=== PATIENT | female | born 1970 | race Caucasian/White ===

== ENCOUNTER → 2022-04-03 01:45 | Outpatient (CLI) | payer MEDICAID, SELFPAY ==
--- NOTE | 2022-04-03 07:30 | DI.US_ITS ---
Exam(s) US PELVIS TRANSVAGINAL EXAM: US PELVIS TRANSVAGINAL CLINICAL HISTORY: assess uterus ovaries; ?fibroid,MENORRHAGIA, DYSMENORRHEA,N92.1 TECHNIQUE: Ultrasound of the pelvis was performed both transabdominal and transvaginal. COMPARISON: No exams were available for comparison FINDINGS: UTERUS: Retroverted Measures 8 cm length x 5 cm AP x 5 cm wide. There is a 13 x 9 x 8 millimeter anterior fundal fibroid.There is also a 14 x 10 x 10 millimeter sub fundal fibroid right of center. Endometrial thickness measures 9 mm. There is no fluid in the endometrial canal. CERVIX: There are no obvious nabothian cysts. RIGHT OVARY: Measures 1.5 x 2.9 x 1.9 cm Contains small cysts ranging up to 1.6 x 1.6 cm. LEFT OVARY: Measures 2.5 x 1.3 x 2 cm No significant cysts nor masses evident in the left ovary. CUL-DE-SAC: Tiny amount of free fluid IMPRESSION: 1. Two small uterine fibroids. 2. Follicular cyst right ovary measuring 1.6 x 1.6 cm 3. Small amount of free fluid. DATA REPOSITORY:
== END ==
PROVIDERS: PCP Nurse Practitioner Adult Health; Visit Provider Nurse Practitioner Adult Health
DX: N92.1 Excessive and frequent menstruation with irregular cycle (principal); N94.6 Dysmenorrhea, unspecified; D25.9 Leiomyoma of uterus, unspecified
CPT/HCPCS: 76830; 76856

== ENCOUNTER 2022-04-03 03:37 | Outpatient (CLI) | payer MEDICAID, SELFPAY ==
[2022-04-03 10:13] LABS: Anion Gap 7.5 mmol/L (3-11); BUN 14 mg/dL (7-18); CO2 28.5 mmol/L (21.0-32.0); CREATININE 0.6 mg/dL (0.55-1.02); Calcium 8.6 mg/dL (8.5-10.1); Calculated LDL 190 mg/dL (<100); Chloride 104 mmol/L (98-107); Cholesterol 317 mg/dL (<200); Glucose 88 mg/dL (74-106); HDL Cholesterol 116 mg/dL (40-60); Potassium 4.2 mmol/L (3.5-5.1); Sodium 140 mmol/L (136-145); Triglyceride 59 mg/dL (<150)
== END 2022-04-03 03:38 | disposition home or self-care (01) ==
LOC: LBO 03:37
PROVIDERS: PCP Nurse Practitioner Adult Health; Referring Provider Nurse Practitioner Adult Health; Visit Provider Nurse Practitioner Adult Health
DX: E78.5 Hyperlipidemia, unspecified; J45.998 Other asthma; N92.1 Excessive and frequent menstruation with irregular cycle
CPT/HCPCS: 36415; 80048; 80061

== ENCOUNTER 2022-04-21 10:48 | Outpatient (REF) | payer MEDICAID, SELFPAY ==
--- NOTE | 2022-04-21 10:00 | PAPFT_PTH ---
PATIENT: Sydnee Ruano LOC: [facility] U#:[id number] AGE/SX: 52/F ROOM: RE04/21/[address]: Yanci Wills APRN : 1970 BED: DIS: 04/21/2022 SPEC #: [id number] RECD: 04/21/22 17:32 STATUS: QUANG EVANGELISTA #: [id number] CITLALLI: 04/21/22 10:[address]: Yanci Wills DEPT: [facility] Cytology RECD BY: Susana Berry Tissues: 1 - CX/ENDOCX FOR PAP SMEARS Procedures: PAP THIN PREP/UVM Screening HPV DNA PROBE Comments: [id number]
== END 2022-04-21 10:49 | disposition home or self-care (01) ==
LOC: LBN 10:48
PROVIDERS: PCP Nurse Practitioner Adult Health; Visit Provider Nurse Practitioner Adult Health
DX: Z12.4 Encounter for screening for malignant neoplasm of cervix (principal); R87.618 Other abnormal cytological findings on specimens from cervix uteri; Z11.51 Encounter for screening for human papillomavirus (HPV)
CPT/HCPCS: 88142; 87624

== ENCOUNTER → 2022-05-22 01:37 | Outpatient (CLI) | payer MEDICAID, SELFPAY ==
--- NOTE | 2022-05-22 14:31 | DI.MAMMO_ITS ---
Exam(s) MAMMO SCREENING EXAM: MAMMO SCREENING CLINICAL HISTORY: screening,Z12.39 TECHNIQUE: Mammograms were interpreted according to the usual protocol including computer analysis w [employer] CAD system, tomosynthesis and C-view imaging. COMPARISON: No exams were available for comparison baseline exam FINDINGS: The breasts are composed of scattered fibroglandular densities, Breast Density category B. No suspicious masses or suspicious microcalcifications are seen. No skin thickening or abnormal axillary lymph nodes are seen. IMPRESSION: BI-RADS Category 1, Negative mammogram Yearly screening mammography is recommended. Breast Density - Category B, scattered fibroglandular densities. A negative radiographic report should not delay biopsy if a dominant or clinically suspicious mass is present. Up to ten percent of cancers are not identified on mammography. A negative report may reinforce clinical impression. Adenosis and dense breasts may obscure an underlying neoplasm. False positive reports average 6 to 10%. Patient will receive a letter notifying them of these results.
== END ==
PROVIDERS: PCP Nurse Practitioner Adult Health; Visit Provider Nurse Practitioner Adult Health
DX: Z12.31 Encounter for screening mammogram for malignant neoplasm of breast (principal)
CPT/HCPCS: 77063; 77067

== ENCOUNTER 2023-01-11 02:52 | Outpatient (CLI) | payer MEDICAID, SELFPAY ==
[2023-01-11 09:36] LABS: Calculated LDL 139 mg/dL (<100); Cholesterol 255 mg/dL (<200); HDL Cholesterol 106 mg/dL (40-60); Triglyceride 50 mg/dL (<150)
== END 2023-01-11 02:53 | disposition home or self-care (01) ==
PROVIDERS: PCP Nurse Practitioner Adult Health; Visit Provider Nurse Practitioner Adult Health
DX: E78.2 Mixed hyperlipidemia (principal)
CPT/HCPCS: 36415; 80061

== ENCOUNTER 2023-02-05 08:45 | Day surgery (SDC) | payer MEDICAID, SELFPAY ==
--- NOTE | 2023-02-04 14:42 | W.ANESPRE ---
General Info Date of Service Date Performed: 02/05/23 Height: 5 ft 6 in Weight: 75.807 kg Body Mass Index (BMI): 26.9 Surgical Procedure: Operation Date: 02/05/23 10:35 Proposed Procedure Side Surgeon shakir Perez MD Meds Allergies and Home Medications Allergies Allergy/AdvReac Type Severity Reaction Status Date / Time environmental Allergy Unknown Uncoded 02/02/23 10:37 Home Medication Medication Instructions Recorded albuterol sulfate 90 mcg/actuation 1 - 2 puff inhalation Q4H PRN 01/17/23 aerosol inhaler (Ventolin HFA) shortness of breath or wheezing #8.5 grams budesonide-formoterol HFA 160 1 - 2 puff inhalation BID #10.2 01/17/23 mcg-4.5 mcg/actuation aerosol grams inhaler (Symbicort) loratadine 10 mg tablet 10 mg PO .daily-bid #180 tabs 01/23/23 Current Visit Medications: Current Medications Generic Name Dose Route Start Last Admin Trade Name Freq PRN Reason Stop Dose Admin Ringer's Solution 1,000 mls @ 80 mls/hr 02/05/23 06:00 IV 02/05/23 23:59 INFUSION ADITI IV Miscellaneous Supplies 1 each 02/05/23 06:00 Iv Access IV 02/05/23 23:59 DIRECTED ADITI Sodium Chloride 0 ml 02/05/23 06:00 Normal Saline Flush 10 Ml Syr IV 02/05/23 23:59 PRN PRN Sodium Chloride 0 ml 02/05/23 06:00 Normal Saline 10 Ml Vial IJ 02/05/23 23:59 DIRECTED PRN Sterile Water 0 ml 02/05/23 06:00 Water,Injection,Sterile 10 Ml Vial IJ 02/05/23 23:59 DIRECTED PRN PFSH Active Problems Active Problems: Problem Status Onset Code Uterine fibroid D25.9 Hyperlipidemia ~03/2022 E78.5 Menorrhagia N92.0 Asthma J45.909 Migraine G43.909 Tinnitus, right ear H93.11 Medical History Medical History COVID (~08/25/22) History of left shoulder fracture Fell off 4-muller in 20s Right ankle sprain Surgical History Surgical History No pertinent past surgical history Tobacco Smoking/Tobacco Use Status: Never Passive smoking exposure: No Alcohol Alcohol Intake: current Alcohol intake frequency: holidays/special occasions only Substance Use Substance use: Never Substance use type: does not use Prental History History 2 Para 2 Hx # Term Pregnancies 2 Multiple births Hx # Pregnancies Ectopic pregnancies AB induced Hx Number of Living Children 2 AB spontaneous Vital Signs and Lab Results Vital Signs Most Recent Vital Signs in EMR: Temp Pulse Resp BP Pulse Ox 36.7 C 85 20 134/83 99 02/05/23 09:58 02/05/23 09:58 02/05/23 09:58 02/05/23 09:58 02/05/23 09:58 Lab Results Blood Type / Crossmatch: No Data to Display Complete Blood Count: No Data to Display Complete Metabolic Panel: No Data to Display Liver Function Panel: No Data to Display Coagulation Panel: No Data to Display Cardiac Panel: No Data to Display Arterial Blood Gas: No Data to Display Venous Blood Gas: No Data to Display Pancreas Panel: No Data to Display Thyroid Panel: No Data to Display Infectious Disease: No Data to Display Blood Cultures: No Data to Display Toxicology Panel: No Data to Display Panel: No Data to Display Anesthesia Assessment and Plan Anesthesia History Personal History: No History of Anesthesia Complications Family History: No Family History of Anesthesia Complications Exercise Tolerance Exercise Tolerance: Metabolic Equivalents>4 Cardiac & Pulmonary Exam Cardiac Exam: Normal S1/S2 Heart Sounds Pulmonary Exam: Clear Bilateral Breath Sounds Implantable Cardiac Device Does patient have a Pacemaker or an ICD?: No Airway Exam Known Difficult Airway: No Mallampati Class: 1 Mouth Opening: Normal (> 3cm) Thyromental Distance: Greater than 3 cm Neck Range of Motion: Full ROM Neck Circumference: Normal Teeth Condition: Normal Dentition ASA Classification ASA Score: ASA 2 Emergency Case?: No NPO Status NPO Status: NPO Clears >2 hours, Solids >8 hours Status Status: Not Relevant due to Medical History Anesthesia Plan Resuscitation Status: Full Code Anesthesia Technique: General Anesthesia Airway Planned: Natural Airway Monitors Used: Standard Monitors Preoperative Comments:: 53 yo female for colo. Sig PMHx: asthma (symicort, albuterol), never smoker,
--- NOTE | 2023-02-04 21:51 | W.PM.DSUDISC ---
Date of service: 02/05/23 Time of Service: 12:04 Discharge Plan Disposition Patient Disposition: Home Condition: Good Discharge Details Reason For Visit: Screening colonoscopy Attending Provider: Zoran Perez Primary Care Provider: Yanci Wills Home Meds and New Rx's Prescriptions: Continued albuterol sulfate [Ventolin HFA] 90 mcg/actuation HFA aerosol inhaler 1 - 2 puff inhalation Q4H PRN (Reason: shortness of breath or wheezing) Qty: 8.5 6RF Rx Instructions: Dispense with a spacer, please. budesonide-formoterol [Symbicort] 160-4.5 mcg/actuation HFA aerosol inhaler 1 - 2 puff inhalation BID Qty: 10.2 2RF loratadine 10 mg tablet 10 mg PO .daily-bid MDD 20mg/24h Qty: 180 2RF Rx Instructions: allergic asthma Discontinued bisacodyl [Dulcolax (bisacodyl)] 5 mg tablet,delayed release (DR/EC) 5 mg PO ONCE Qty: 4 0RF Rx Instructions: Take per colonoscopy instructions provided by ordering providers office polyethylene glycol 3350 17 gram/dose powder 17 g PO ONCE Qty: 238 0RF Rx Instructions: Take per colonoscopy instructions provided by ordering providers office Discharge Instructions Instructions: Colorectal Polyps (GEN) Additional Instructions: Sydnee, we were able to complete your colonoscopy today without any difficulty. I did find a total of 3 polyps. I removed these all. 2 of the polyps were rather large, but there was minimal bleeding from the procedure. When I have the results of the pathology report describing the nature of these polyps I will be in touch with my next recommendations. 1. If tolerated, consume a soft, low fiber diet for 1-2 days. 2. Do not drive, drink alcohol, operate machinery, make critical decisions, or do activities that require coordination or balance for 24 hours. 3. Because air was put into your colon during the procedure, expelling air from your rectum (passing gas or farting) is normal. 4. You may not have a bowel movement for 1-3 days because of the colonoscopy prep. This is normal. 5. Go directly to the emergency room if you notice any of the following: Develop chills (warm to touch), or if you have a thermometer and your temperature is above 101 Difficulty breathing or difficultly swallowing Persistent vomiting Severe abdominal pain, other than gas cramps Severe chest pain Black, tarry stools Any bleeding ? exceeding one tablespoon 6. Call your physician if the site where your intravenous was started becomes red, swollen, painful, and warm to touch. 7. Your physician has reviewed your pre-procedure medications. Please continue to take those medications as previously ordered. You will be given specific information/education regarding any changes to your medications before leaving. Activity:: Activity as Tolerated Diet:: As Tolerated Discharge Orders Discharge Orders: Discharge Order (Routine); Ordered 02/04/23 Ordered By: Zoran Perez DS: Diagnosis Discharge Diagnosis (1) Screening for colon cancer: Status: Acute Asessment and Plan: Follow-up on polypectomy results
--- NOTE | 2023-02-04 21:52 | W.COLOREPORT ---
Date of service: 02/05/23 Time of Service: 12:05 Colonoscopy Report Date of procedure: 02/05/23 Pre-op diagnosis general: Screening colonoscopy Post-op diagnosis procedure note: other (Colorectal polyps) Procedure: Colonoscopy with polypectomy Surgeon: Zoran Perez Anesthesia Type: General:No Airway Estimated blood loss (mL): 10 Pathology: other (Cecal polyps x2, polyp at 110 cm) Complications: None Disposition: same day Prep: Miralax/Dulcolax Procedure Start Time: 11:16 Procedure End Time: 11:49 Retraction Time: 18 Findings: Cecal polyps x2, both greater than 1 cm; 0.25 cm polyp at 110 cm Procedure Description: After the induction of monitored anesthetic care, and with the patient in left lateral decubitus position, I began by performing an external anorectal exam.? Perineum and skin were normal, as was the anal verge.? There was no evidence of external hemorrhoids.? Next, I performed a digital rectal exam.? I did not appreciate any abnormal findings.? Next, I advanced a colonoscope into the rectal vault.? I performed retroflexion.? This appeared normal.? Using insufflation, I then advanced the colonoscope beyond the rectal folds and into the sigmoid colon before advancing towards the cecum.? The quality of the prep was excellent.? The scope was noted to be in the cecum by identification of the ileocecal valve and appendiceal orifice.? Within the cecum there were 2 polyps. Both were greater than 1 cm. They were both sessile in nature. I removed these both with energized snare polypectomy. There was minimal bleeding. I then began withdrawing the colonoscope using repeated irrigation as necessary for full evaluation of the colonic mucosa. Around 110 cm from the anal verge I identified a 0.25 cm polyp. ?It appeared sessile in character. ?I was able to remove this with a cold forcep polypectomy. ?I examined the site, and there was minimal bleeding. ?Once this was completed, I continued to withdraw the scope and examine the remainder of the colonic mucosa. ?Once the scope was withdrawn to the level of the rectum, great care was taken to examine portions of the rectal folds.? Finally, the scope was withdrawn and the patient was brought to the same-day surgery recovery unit as the anesthetic wore off. ?The findings and instructions were shared with the patient prior to discharge.
[2023-02-05 09:58] VITALS: BP 134/83; PULSE 85; RESP 20; TEMP 36.7; O2SAT 99
[2023-02-05] MEDS: Lactated Ringers 1,000 ML 80 ML IV (10:25)
[2023-02-05 10:27] VITALS: BMI 26.9
--- NOTE | 2023-02-05 11:30 | BOWEL_PTH ---
PATIENT: Sydnee Ruano LOC: [facility] U#:[id number] AGE/SX: 53/F ROOM: RE02/05/[address]: Zoran Perez MD : 1970 BED: DIS: 02/05/2023 SPEC #: [id number] RECD: 02/05/23 12:55 STATUS: QUANG RE #: [id number] CITLALLI: 02/05/23 11:[address]: Zoran Perez DEPT: Surgical Specimen RECD BY: Susana Berry ENTERED: 02/05/23 12:56 SP TYPE: Bowel OTHR DR: Yanci Wills APRN Tissues: 1 - BIOPSY BOWEL 2 - BIOPSY BOWEL 3 - BIOPSY BOWEL Procedures: GROSS AND MICRO LEVEL 4 Comments: [id number]
[2023-02-05 11:55] VITALS: BP 107/70; PULSE 78; RESP 17; TEMP 36.5; O2SAT 98
--- NOTE | 2023-02-05 11:58 | W.ANESPOSTOP ---
Postoperative Evaluation Date, Time and Location Date Performed: 02/05/23 Time Performed: 11:58 Patient Location: Day Surgery Unit Vital Signs Most Recent Imported Vital Signs: Most Recent Vital Signs Temp Pulse Resp BP Pulse Ox 36.7 C 85 20 134/83 99 02/05/23 09:58 02/05/23 09:58 02/05/23 09:58 02/05/23 09:58 02/05/23 09:58 Pain Score Most Recent Pain Score: Most Recent Pain Score Pain Level 0 02/05/23 09:58 Assessment Mental Status: Awake (Alert & Oriented to Patient Baseline) Airway and Respiratory Function: Patent airway with normal (patient baseline) respiratory exam Cardiovascular Function: Hemodynamically Stable Hydration Status: Adequately Hydrated Nausea & Vomiting: No Nausea or Vomiting Pain: Pt. Denies Any Pain Peripheral Nerve Block: Patient did not receive a nerve block
[2023-02-05 12:23] VITALS: BP 104/67; PULSE 63; RESP 18; TEMP 36.5; O2SAT 99
--- NOTE | 2023-02-05 12:41 | W.ANESPRE ---
General Info Height: 5 ft 6 in Weight: 73.9 kg Body Mass Index (BMI): 26.3 Surgical Procedure: Operation Date: 02/05/23 10:35 Proposed Procedure Side Surgeon p Colonoscopy Zoran Perez MD Actual Procedure Side Surgeon p Colonoscopy WITH POLYPECTOMIES Not Applicable Zoran Perez MD Pre-Op Diagnosis Post-Op Diagnosis Screening colonoscopy POLYPS Meds Allergies and Home Medications Allergies Allergy/AdvReac Type Severity Reaction Status Date / Time environmental Allergy Unknown Uncoded 02/02/23 10:37 Home Medication Medication Instructions Recorded albuterol sulfate 90 mcg/actuation 1 - 2 puff inhalation Q4H PRN 01/17/23 aerosol inhaler (Ventolin HFA) shortness of breath or wheezing #8.5 grams budesonide-formoterol HFA 160 1 - 2 puff inhalation BID #10.2 01/17/23 mcg-4.5 mcg/actuation aerosol grams inhaler (Symbicort) loratadine 10 mg tablet 10 mg PO .daily-bid #180 tabs 01/23/23 PFSH Active Problems Active Problems: Problem Status Onset Code Screening for colon cancer Z12.11 Uterine fibroid D25.9 Hyperlipidemia ~03/2022 E78.5 Menorrhagia N92.0 Asthma J45.909 Migraine G43.909 Tinnitus, right ear H93.11 Medical History Medical History COVID (~08/25/22) History of left shoulder fracture Fell off 4-muller in 20s Right ankle sprain Surgical History Surgical History No pertinent past surgical history Tobacco Smoking/Tobacco Use Status: Never Passive smoking exposure: No Alcohol Alcohol Intake: current Alcohol intake frequency: other Substance Use Substance use: Never Substance use type: does not use Prental History History 2 Para 2 Hx # Term Pregnancies 2 Multiple births Hx # Pregnancies Ectopic pregnancies AB induced Hx Number of Living Children 2 AB spontaneous Vital Signs and Lab Results Vital Signs Most Recent Vital Signs in EMR: Most Recent Vital Signs Temp Pulse Resp BP Pulse Ox 36.5 C 63 18 104/67 99 02/05/23 12:23 02/05/23 12:23 02/05/23 12:23 02/05/23 12:02/05/23 12:23 Lab Results Blood Type / Crossmatch: No Data to Display Complete Blood Count: No Data to Display Complete Metabolic Panel: No Data to Display Liver Function Panel: No Data to Display Coagulation Panel: No Data to Display Cardiac Panel: No Data to Display Arterial Blood Gas: No Data to Display Venous Blood Gas: No Data to Display Pancreas Panel: No Data to Display Thyroid Panel: No Data to Display Infectious Disease: No Data to Display Blood Cultures: No Data to Display Toxicology Panel: No Data to Display Panel: No Data to Display Anesthesia Assessment and Plan Anesthesia History Personal History: No History of Anesthesia Complications Family History: No Family History of Anesthesia Complications Exercise Tolerance Exercise Tolerance: Metabolic Equivalents>4 Implantable Cardiac Device Does patient have a Pacemaker or an ICD?: No Airway Exam Known Difficult Airway: No Mallampati Class: 1 Mouth Opening: Normal (> 3cm) Thyromental Distance: Greater than 3 cm Neck Range of Motion: Full ROM Neck Circumference: Normal Teeth Condition: Normal Dentition
== END 2023-02-05 12:29 | disposition home or self-care (01) ==
PROVIDERS: PCP Nurse Practitioner Adult Health; Visit Provider Surgery
PROC: 0DJD8ZZ Inspection of Lower Intestinal Tract, Via Natural or Artificial Opening Endoscopic (ICD-10-PCS; CPT 45378; principal; 2023-02-05 10:30)
DX: Z12.11 Encounter for screening for malignant neoplasm of colon (principal); D37.4 Neoplasm of uncertain behavior of colon
CPT/HCPCS: 45385; 45380; 88305; J2704

== ENCOUNTER 2023-02-09 16:20 | Outpatient (CLI) | payer MEDICAID, SELFPAY ==
[2023-02-12 20:44] LABS: Alternaria Tenuis IgE <0.10 kU/L (<0.70); Aspergillus Fumigatus IgE <0.10 kU/L (<0.70); Bermuda Grass IgE 0.82 kU/L (<0.70); Cat Epithelium IgE 1.65 kU/L (<0.70); Cladosporium IgE <0.10 kU/L (<0.70); Cocklebur IgE <0.10 kU/L (<0.70); Cockroach IgE <0.10 kU/L (<0.70); Cottonwood IgE <0.10 kU/L (<0.70); D Farinae IgE <0.10 kU/L (<0.70); D Pteronyssinus IgE <0.10 kU/L (<0.70); Dog Dander IgE 0.33 kU/L (<0.70); Eastern Sycamore IgE <0.10 kU/L (<0.70); Elm IgE <0.10 kU/L (<0.70); Epicoccum purpurascens IgE <0.10 kU/L (<0.70); Giant Ragweed IgE <0.10 kU/L (<0.70); Lamb's Quarter IgE <0.10 kU/L (<0.70); Oak IgE <0.10 kU/L (<0.70); Penicillium chrysogenum IgE <0.10 kU/L (<0.70); Red Sorrel IgE <0.10 kU/L (<0.70); Rough Pigweed IgE <0.10 kU/L (<0.70); Short Ragweed IgE <0.10 kU/L (<0.70); Silver Birch IgE 0.59 kU/L (<0.70); Stemphyllium IgE <0.10 kU/L (<0.70); Timothy Grass IgE 1.26 kU/L (<0.70); Walnut Tree IgE <0.10 kU/L (<0.70); Wormwood IgE <0.10 kU/L (<0.70)
[2023-02-14 17:31] LABS: CLASS 0; CLASS 1; Cedar Red IgE 0.42 kU/L (<0.35); Rhodotorula IgE <0.35 kU/L (<0.35)
== END 2023-02-09 16:21 | disposition home or self-care (01) ==
LOC: LBO 16:22
PROVIDERS: PCP Nurse Practitioner Adult Health; Visit Provider Physician Assistant
DX: J45.40 Moderate persistent asthma, uncomplicated (principal); Z91.09 Other allergy status, other than to drugs and biological substances; Z01.82 Encounter for allergy testing
CPT/HCPCS: 36415; 86003

== ENCOUNTER → 2024-01-28 01:44 | Outpatient (CLI) | payer MEDICAID, SELFPAY ==
--- NOTE | 2024-01-28 07:00 | DI.MAMMO_ITS ---
Exam(s) MAMMO SCREENING EXAM: MAMMO SCREENING CLINICAL HISTORY: screening, Z12.39 TECHNIQUE: Bilateral full field digital CC and MLO mammographic images were obtained with 3D tomosyn thesis and utilizing computer aided detection (CAD). COMPARISON: Available for comparison. FINDINGS: Masses/Architectural Distortion: There is a small focus of asymmetric breast tissue in the central le ft breast on the craniocaudad view. It may represent overlying fibroglandular tissue. Spot compress ion views requested for further evaluation. Microcalcifications: No suspicious pleomorphic-type are seen. Skin Thickening/Nipple Retraction: None. IMPRESSION: 1. Small focus of asymmetric breast density in the central left breast on the craniocaudad view. 2. Spot compression views requested for further evaluation. BI-RADS Category 0 - Assessment Incomplete: Need additional imaging evaluation Breast Density - Category B - Scattered areas of fibroglandular density Breast density category C or D implies that the patient has dense breast tissue. Dense breast tissue is very common and is not abnormal but dense breast tissue can make it harder to find cancer on a ma mmogram. Also, dense breast tissue may increase their breast cancer risk. This information about the result of the mammogram report was provided to the patient to raise their awareness. Use this report when you speak with the patient about their risks for breast cancer, which includes their family hist ory. At that time, you may recommend for more screening tests (Ultrasound or MRI) as they might be us eful based on their risk. A negative radiographic report should not delay biopsy if a dominant or clinically suspicious mass is present. Up to ten percent of cancers are not identified on mammography. A negative report may reinforce clinical impression. Adenosis and dense breasts may obscure an underlying neoplasm. False positive reports average 6 to 10%. Patient will receive a letter notifying them of these results.
== END ==
PROVIDERS: PCP Nurse Practitioner Adult Health; Visit Provider Nurse Practitioner Adult Health
DX: Z12.31 Encounter for screening mammogram for malignant neoplasm of breast (principal); R92.8 Other abnormal and inconclusive findings on diagnostic imaging of breast
CPT/HCPCS: 77063; 77067

== ENCOUNTER 2024-02-01 11:01 | Day surgery (SDC) | payer MEDICAID, SELFPAY ==
--- NOTE | 2024-01-31 23:17 | DSE_ITS ---
Date of service: 02/01/24 Time of Service: 14:17 DS: Diagnosis Discharge Diagnosis (1) Diverticula of colon: Status: Acute Asessment and Plan: The patient is seen and examined after their colonoscopy.? The patient has been able to pass gas.? They are not having abdominal pain.? They have been able to tolerate liquids and a snack.? They do not have any nausea or vomiting.? They are not having any chest pain or shortness of breath.??? They are not having any rectal bleeding. Their vital signs have been stable-see nursing notes. We discussed findings during their colonoscopy, and any biopsies that were done/polyps that were removed. The patient will be sent a letter with any biopsy results, and when to repeat the colonoscopy.-see discharge instructions. Patient was given explicit instructions to follow-up regarding colonoscopy-refer to discharge instructions.? We reviewed resumption of medications. Patient verbalized understanding and discharged in stable and satisfactory condition- See nursing notes. 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 (4) Tubulovillous adenoma: Status: Acute (5) Asthma: Status: Chronic (6) Migraine: Status: Chronic Discharge Plan Disposition Patient Disposition: Home Condition: Good Discharge Details Reason For Visit: colon scope Attending Provider: Elena Myers Primary Care Provider: Yanci Wills Home Meds and New Rx's Prescriptions: Continued budesonide-formoterol [Symbicort] 160-4.5 mcg/actuation HFA aerosol inhaler 1 - 2 puff inhalation BID Qty: 3 2RF Rx Instructions: Please dispense 3 month supply magnesium 200 mg tablet 200 mg PO QHS albuterol sulfate 90 mcg/actuation HFA aerosol inhaler See Rx Instructions .ROUTE .COMPLEX Qty: 8.5 6RF Dose Instruction: INHALE 1 TO 2 PUFFS EVERY 4 HOURS NEEDED FOR SHORTNESS OF BREATH OR WHE EZING Rx Instructions: INHALE 1 TO 2 PUFFS EVERY 4 HOURS NEEDED FOR SHORTNESS OF BREATH OR WHEEZING montelukast [Singulair] 10 mg tablet 10 mg PO DAILY Qty: 90 3RF azelastine 137 mcg (0.1 %) aerosol,spray 1 spray intranasal BID PRN (Reason: allergies) Qty: 30 4RF Rx Instructions: administer into each nostril Discontinued polyethylene glycol 3350 17 gram/dose powder 238 g PO ONCE Qty: 238 0RF Rx Instructions: take per colonoscopy instructions bisacodyl [Dulcolax (bisacodyl)] 5 mg tablet,delayed release (DR/EC) 5 mg PO ONCE Qty: 4 0RF Rx Instructions: take per colonoscopy instructions Discharge Instructions Additional Instructions: [facility] Colonoscopy Post- Op Instructions Instructions for Everyone who is given Anesthesia: For your safety, please do the following for the next twenty-four (24) hours: *Do Not operate a motor vehicle (car, truck, motorcycle, etc.) *Do Not drink alcoholic beverages or use any recreational drugs for the first 24 hours or while taking pain medications. The medications in your body may have a reaction that can be dangerous. *Do Not make any important decisions or sign any important papers. Findings: Diverticula-make sure you are moving your bowels on a regular basis. If you find you are having problems with constipation/straining to move your bowels, then we recommend starting a fiber product such as Metamucil. x3 small polyp Follow up: My office will send you a letter in 3 to 4 weeks time with the results of the polyps and when we want you to repeat the colonoscopy. Most likely 3 years time. 1. No lifting over 20 pounds or strenuous activity for the first 24 hours after your procedure. After 24 hours there are no restrictions on your activity but you may feel fatigued for a few days. 2. After you arrive home you may have a light meal and return to your normal diet as you can tolerate it without feeling sick to your stomach. 3. You may have a bloated, gaseous feeling in your belly (abdomen) after a colonoscopy. Passing gas and belching will help. Walking or lying down on your left side with your knees flexed may relieve the discomfort. Call the office at [phone] (Office) or [phone] (Hospital) right away if you notice any of the following: a.Vomiting of blood or ?coffee ground stools?. b.Rectal bleeding 1Tbsp, blood clots or continuous bleeding. c.Severe belly (abdominal) pain. d.A hard distended belly (abdomen) and an inability to pass gas. 4. Please don?t expect to have a normal BM (bowel movement) for 2-3 days after your procedure. 5. If there are questions regarding the findings of your procedure, please contact your doctor 6. If you are unable to contact your doctor with a problem, contact the hospital at [phone]. 7. Continue all your regular medications unless directed otherwise. I understand the above instructions and have no questions. Signature of Patient or Adult Escort Name of Responsible Adult Escort Signature of Nurse Date/Time Stand Alone Forms: Anesthesia Discharge Inst., Izzy Pelaez ([facility]) Discharge Orders Discharge Orders: Discharge Order (Routine); Ordered 02/01/24 Ordered By: Elena Myers Discharge Data Discharge Date/Time-TO BE ENTERED AT DEPARTURE: 02/01/24 15:00 DS: Summary Time Spent with Patient providing and/or coordinating discharge services: Less than 30 minutes Status at Discharge Functional status at discharge: independent ambulation Overall status at discharge: patient is back to baseline Mental Status: mental status grossly normal Speech and Movement: speech and movement normal Mood: congruent mood Affect: normal affect Quality:SDOH Health Related Social Needs: No Data to Display Exam Psych Mental Status: mental status grossly normal Speech and Movement: speech and movement normal Mood: congruent mood Affect: normal affect DS: Data Vitals/I&O Vitals and I&O: Intake & Output 01/30/24 01/31/24 01/31/24 23:59 11:59 23:59 Weight 71.894 kg 71.894 kg PFSH All Active Problems (Updated 02/01/24 @ 14:18 by Elena Myers DO) Diverticula of colon (Acute) Meniere's disease of right ear (Acute) Tubulovillous adenoma (Acute ~01/2023) Uterine fibroid (Acute) pelvic U/S; ovarian cyst Hyperlipidemia (Acute ~03/2022) LDL 190; repeat labs sig improvement with TLCs Menorrhagia (Acute) Perimenopausal Asthma (Chronic) Migraine (Chronic) Tinnitus, right ear (Chronic) Medical History (Updated 02/01/24 @ 14:18 by Elena Myers DO) Screening for colon cancer COVID (~08/25/22) Right ankle sprain History of left shoulder fracture Fell off 4-muller in 20s Surgical History History of colonoscopy with polypectomy (~02/05/23) No pertinent past surgical history Family History Son Asthma Father Diabetes Hypertension Stroke Hemorrhagic HTN Hyperlipidemia Paternal Grandmother Heart disease Mother Hyperlipidemia Hypertension Villous adenoma of colon s/p hemicolectomy Sister Hyperlipidemia Social History Smoking/Tobacco Use Status: Never Smoking risk assessment performed?: Yes Alcohol Intake: current Alcohol Intake frequency: holidays/special occasions only Drug use: Never Substance use type: does not use Adopted: No Caregiver/Support person: No Foster care: No Household members: significant other Housing: house Number of Children: 2 Communication Needs: None Education Level: high school Do you need help understanding health information?: Never current occupation: [employer]. Pets and animals: No Sexually active: Yes Do you think of yourself as: straight/heterosexual Current gender identity: female What is your relationship status?: living with partner How often do you talk on the phone with friends or family?: three or more times per week How often do you get together with friends or relatives?: once per week How often do you attend episcopal or cheondoism services?: decline to answer Do you belong to any clubs or organized social groups?: no Panel score (0-1 are the most socially isolated patients): 2 What type of physical activity do you participate in: other Details: hiking Duration: > 90 minutes/day Frequency: 3-4 times per week Kate/Temple: None Special kate needs: No Seatbelt use: always Helmet use: No (N/A) Drive intox or ride w/intox experienced truck driver: No Do you feel safe at home: Yes Do you feel safe in your relationship?: Yes History History 2 Para 2 Hx # Term Pregnancies 2 Multiple births Hx # Pregnancies Ectopic pregnancies AB induced Hx Number of Living Children 2 AB spontaneous Time Spent with Patient Time Spent with Patient: <45 minutes Time was spent: obtaining and/or reviewing separately otained hiistory, indepentently interpreting results, counseling the patient and care coordination
[2024-02-01 11:10] VITALS: BP 147/90; PULSE 58; RESP 16; TEMP 36.5; O2SAT 99
[2024-02-01] MEDS: Lactated Ringers 1,000 ML 80 ML IV ×2 (11:39→13:59)
--- NOTE | 2024-02-01 13:14 | W.ANESPRE ---
General Info Date of Service Date Performed: 02/01/24 Height: 5 ft 6 in Weight: 68.8 kg Body Mass Index (BMI): 24.5 Surgical Procedure: Operation Date: 02/01/24 10:50 Proposed Procedure Side Surgeon shakir Myers, Meds Allergies and Home Medications Allergies Allergy/AdvReac Type Severity Reaction Status Date / Time environmental Allergy Unknown Wheezing Uncoded 01/31/24 12:00 Home Medication Medication Instructions Recorded budesonide-formoterol HFA 160 1 - 2 puff inhalation BID #3 units 04/26/23 mcg-4.5 mcg/actuation aerosol inhaler (Symbicort) albuterol sulfate 90 mcg/actuation See Rx Instructions .Route 08/06/23 aerosol inhaler .COMPLEX #8.5 grams azelastine 137 mcg (0.1 %) nasal 1 spray intranasal BID PRN 01/07/24 spray aerosol allergies #30 mL montelukast 10 mg tablet 10 mg PO DAILY #90 tabs 01/07/24 (Singulair) bisacodyl 5 mg tablet,delayed 5 mg PO ONCE colonscopy bowel prep 01/22/24 release (Dulcolax (bisacodyl)) #4 tabs magnesium 200 mg tablet 200 mg PO QHS 01/22/24 polyethylene glycol 3350 17 238 g PO ONCE colonoscopy prep 01/22/24 gram/dose oral powder #238 grams Current Visit Medications: Current Medications Generic Name Dose Route Start Last Admin Trade Name Freq PRN Reason Stop Dose Admin Hyoscyamine Sulfate 0.125 mg 02/01/24 05:00 Hyoscyamine 0.125 Mg Sl/Oral/Chew SL 03/02/24 04:59 DIRECTED PRN Ringer's Solution 1,000 mls @ 80 mls/hr 02/01/24 06:00 02/01/24 11:39 IV 02/01/24 23:59 80 mls/hr INFUSION ADITI Administration IV Miscellaneous Supplies 1 each 02/01/24 06:00 Iv Access IV 02/01/24 23:59 DIRECTED ADITI Ondansetron HCl 4 mg 02/01/24 05:00 Ondansetron 4 Mg/2 Ml Vial IVP 03/02/24 04:59 Q4H PRN PRN Nausea / Vomiting Sodium Chloride 0 ml 02/01/24 06:00 Normal Saline Flush 10 Ml Syr IV 02/01/24 23:59 PRN PRN Sodium Chloride 0 ml 02/01/24 06:00 Normal Saline 10 Ml Vial IJ 02/01/24 23:59 DIRECTED PRN Sterile Water 0 ml 02/01/24 06:00 Water,Injection,Sterile 10 Ml Vial IJ 02/01/24 23:59 DIRECTED PRN PFSH Active Problems Active Problems: Problem Status Onset Code Meniere's disease of right ear H81.01 Tubulovillous adenoma ~01/2023 D36.9 Uterine fibroid D25.9 Hyperlipidemia ~03/2022 E78.5 Menorrhagia N92.0 Asthma J45.909 Migraine G43.909 Tinnitus, right ear H93.11 Medical History Medical History Screening for colon cancer COVID (~08/25/22) Right ankle sprain History of left shoulder fracture Fell off 4-muller in 20s Surgical History Surgical History History of colonoscopy with polypectomy (~02/05/23) No pertinent past surgical history Tobacco Smoking/Tobacco Use Status: Never Passive smoking exposure: No Alcohol Alcohol Intake: current Alcohol intake frequency: holidays/special occasions only Substance Use Substance use: Never Substance use type: does not use Prental History History 2 Para 2 Hx # Term Pregnancies 2 Multiple births Hx # Pregnancies Ectopic pregnancies AB induced Hx Number of Living Children 2 AB spontaneous Vital Signs and Lab Results Vital Signs Most Recent Vital Signs in EMR: Most Recent Vital Signs Temp Pulse Resp BP Pulse Ox 36.5 C 58 L 16 147/90 H 99 02/01/24 11:10 02/01/24 11:10 02/01/24 11:10 02/01/24 11:10 02/01/24 11:10 Point of Care Results Point of Care Results: POC- Test(urine) Negative 02/01/24 11:37 Lab Results Blood Type / Crossmatch: No Data to Display Complete Blood Count: No Data to Display Complete Metabolic Panel: No Data to Display Liver Function Panel: No Data to Display Coagulation Panel: No Data to Display Cardiac Panel: No Data to Display Arterial Blood Gas: No Data to Display Venous Blood Gas: No Data to Display Pancreas Panel: No Data to Display Thyroid Panel: No Data to Display Infectious Disease: No Data to Display Blood Cultures: No Data to Display Toxicology Panel: No Data to Display Panel: No Data to Display Anesthesia Assessment and Plan Anesthesia History Personal History: No History of Anesthesia Complications Family History: No Family History of Anesthesia Complications Exercise Tolerance Exercise Tolerance: Metabolic Equivalents>4 Pertinent Negatives Pertinent Negatives: No Symptoms of GERD and No Major Cardiovascular Symptoms or Complaints Cardiac & Pulmonary Exam Cardiac Exam: Normal S1/S2 Heart Sounds Pulmonary Exam: Clear Bilateral Breath Sounds Implantable Cardiac Device Does patient have a Pacemaker or an ICD?: No Airway Exam Known Difficult Airway: No Mallampati Class: 1 Mouth Opening: Normal (> 3cm) Thyromental Distance: Greater than 3 cm Neck Range of Motion: Full ROM Neck Circumference: Normal Teeth Condition: Normal Dentition ASA Classification ASA Score: ASA 2 Emergency Case?: No NPO Status NPO Status: NPO Clears >2 hours, Solids >8 hours Status Status: Negative HCG Anesthesia Plan Resuscitation Status: Full Code Anesthesia Technique: General Anesthesia Airway Planned: Natural Airway Monitors Used: Standard Monitors
[2024-02-01 13:15] VITALS: BMI 24.5
--- NOTE | 2024-02-01 13:48 | BOWEL_PTH ---
PATIENT: Sydnee Ruano LOC: [facility] U#:[id number] AGE/SX: 54/F ROOM: RE02/01/[address]: Elena Myers : 1970 BED: DIS: 02/01/2024 SPEC #: [id number] RECD: 02/01/24 17:08 STATUS: [facility] #: [id number] CITLALLI: 02/01/24 13:[address]: Elena Myers DEPT: Surgical Specimen RECD BY: Susana Berry ENTERED: 02/01/24 17:09 SP TYPE: Bowel OTHR DR: Yanci Wills APRN Tissues: 1 - BIOPSY BOWEL 2 - BIOPSY BOWEL Procedures: GROSS AND MICRO LEVEL 4 Comments: [id number]
[2024-02-01 14:06] VITALS: BP 119/73; PULSE 66; RESP 16; TEMP 36.2; O2SAT 99
--- NOTE | 2024-02-01 14:19 | W.COLOREPORT ---
Date of service: 02/01/24 Time of Service: 14:20 Colonoscopy Report Date of procedure: 02/01/24 Pre-op diagnosis general: Villous adenoma of cecum Post-op diagnosis procedure note: other (X 3 adenomatous polyps and minor diverticula) Surgeon: Elena Myers Anesthesia Type: General:No Airway Estimated blood loss (mL): 1 Pathology: other Complications: None Disposition: same day Prep: Miralax/Dulcolax Retraction Time: 20 Procedure Description: After informed consent was obtained the patient was taken to the procedure room and placed in a left decubitous position. Monitors were applied and a time out was done. The patients name, date of , procedure, allergies to medications and metal in their body was reviewed. The patient was then sedated. Once sedated and comfortable a rectal exam was done. External exam was normal. Internal exam revealed a normal sphincter tone and no palpable masses. The scope was then introduced and retrofelexed. No internal hemorrhoids were identified. The scope was then advanced to the cecum without difficulty. The TI and appendiceal orifice were identified. The scope was then slowly retracted over 20 minutes back into the rectum. She had x 3 polyps that were removed today. 2 are 0.5 cm flat polyps in the cecum that are removed with a cold biting forcep. She has another flat 0.5 cm polyp at 70 cm that is removed with a cold biting forcep. All specimens are retrieved and no bleeding is noted. She has a few small scattered diverticula in the sigmoid colon with no signs of active bleeding or infection the scope was removed and the patient was woken up and taken back to Same day surgery in stable condition. The patient tolerated the procedure well and there were no immediate complications. Follow up: The patient should follow up in 3-5 years unless they develop changes in bowel habits or other new gastrointestinal complaints. [place] Bowel Prep [place] Bowel Prep Right Colon: 3 Left Colon: 3 Transverse Colon: 3 Total Score: 9
[2024-02-01 14:45] VITALS: BP 135/77; PULSE 67; RESP 16; TEMP 36.2; O2SAT 99
--- NOTE | 2024-02-01 15:04 | W.ANESPOSTOP ---
Postoperative Evaluation Date, Time and Location Date Performed: 02/01/24 Time Performed: 15:02 Patient Location: Day Surgery Unit Vital Signs Most Recent Imported Vital Signs: Most Recent Vital Signs Temp Pulse Resp BP Pulse Ox 36.2 C L 66 16 119/73 99 02/01/24 14:06 02/01/24 14:06 02/01/24 14:06 02/01/24 14:06 02/01/24 14:06 Pain Score Most Recent Pain Score: Most Recent Pain Score Pain Level 0 02/01/24 14:06 Assessment Mental Status: Awake (Alert & Oriented to Patient Baseline) Airway and Respiratory Function: Patent airway with normal (patient baseline) respiratory exam Cardiovascular Function: Hemodynamically Stable Hydration Status: Adequately Hydrated Nausea & Vomiting: No Nausea or Vomiting Pain: Pt. Denies Any Pain Peripheral Nerve Block: Patient did not receive a nerve block
== END 2024-02-01 15:00 | disposition home or self-care (01) ==
PROVIDERS: PCP Nurse Practitioner Adult Health; Visit Provider Surgery
PROC: 0DJD8ZZ Inspection of Lower Intestinal Tract, Via Natural or Artificial Opening Endoscopic (ICD-10-PCS; CPT 45378; principal; 2024-02-01 10:45)
DX: K57.30 Diverticulosis of large intestine without perforation or abscess without bleeding (principal); D12.4 Benign neoplasm of descending colon; D12.0 Benign neoplasm of cecum
CPT/HCPCS: 45380; 81025; 88305; J2001; J2704

== ENCOUNTER → 2024-02-05 01:23 | Outpatient (CLI) | payer MEDICAID, SELFPAY ==
--- NOTE | 2024-02-05 | DI.MAMMO_ITS ---
Exam(s) MAMMO SCREEN CALL BACK UNI EXAM: MAMMO SCREEN CALL BACK UNI CLINICAL HISTORY: ASYMMETRIC DENSITY CENTRAL LEFT BREAST R92.8 ABNL MAMMO. TECHNIQUE: Craniocaudal and mediolateral oblique Full Field Digital Mammography views of the left br east with Computer Aided Diagnosis. COMPARISON: No exams were available for comparison FINDINGS: Mammography/Tomosynthesis: Masses/Architectural Distortion: The area of concern does not persist on the additional views. No sloan spicious nodules or areas of architectural distortion are seen. Microcalcifictions: No suspicious pleomorphic-type are seen. Skin Thickening/Nipple Retraction: None. IMPRESSION: 1. No evidence of malignancy is noted. 2. Unless there is more urgent need, follow-up screening mammography is recommended, as per [place] [employer] guidelines. 3. The findings were discussed with the patient on the date of the examination. BI-RADS Category 1 - Negative Breast Density - Category B - Scattered areas of fibroglandular density Breast density Category C or D implies that the patient has dense breast tissue. Dense breast tissue can make it harder to find cancer on a mammogram. Dense breast tissue is also associated with an incr eased risk of breast cancer. This information about the result of the mammogram report was provided to the patient to raise their awareness. Use this report when you speak with the patient about their risks for breast cancer, which includes their family history. At that time, you may recommend additional screening tests (Ultrasoun d or MRI) as these tests may add significant information. A negative radiographic report should not delay biopsy if a dominant or clinically suspicious mass is present. Up to ten percent of cancers are not identified on mammography. A negative report may reinforce clinical impression. Adenosis and dense breasts may obscure an underlying neoplasm. False positive reports average 6 to 10%. Patient will receive a letter notifying them of these results.
== END ==
PROVIDERS: PCP Nurse Practitioner Adult Health; Visit Provider Nurse Practitioner Adult Health
DX: R92.8 Other abnormal and inconclusive findings on diagnostic imaging of breast (principal)
CPT/HCPCS: 77063; 77067

== ENCOUNTER 2025-02-16 02:08 | Outpatient (CLI) | payer MEDICAID, SELFPAY ==
--- NOTE | 2025-02-16 06:15 | DI.MAMMO_ITS ---
Exam(s) MAMMO SCREENING EXAM: MAMMO SCREENING CLINICAL HISTORY: screening,z12.39 TECHNIQUE: Mammograms were interpreted according to the usual protocol including computer analysis with CAD system, tomosynthesis and C-view imaging. COMPARISON: 2021 and 2023 FINDINGS: The breasts are composed of scattered fibroglandular densities, Breast Density category B. No suspicious masses or suspicious microcalcifications are seen. No skin thickening or abnormal axillary lymph nodes are seen. There has been no significant change from prior exams. IMPRESSION: BI-RADS Category 1, Negative mammogram Yearly screening mammography is recommended. Breast Density - Category B - There are scattered areas of fibroglandular density. Breast density Category C or D implies that the patient has dense breast tissue. Dense breast tissue can make it harder to find cancer on a mammogram. Dense breast tissue is also associated with an increased risk of breast cancer. This information about the result of the mammogram report was provided to the patient to raise their awareness. Use this report when you speak with the patient about their risks for breast cancer, which includes their family history. At that time, you may recommend additional screening tests (Ultrasound or MRI) as these tests may add significant information. A negative radiographic report should not delay biopsy if a dominant or clinically suspicious mass is present. Up to ten percent of cancers are not identified on mammography. A negative report may reinforce clinical impression. Adenosis and dense breasts may obscure an underlying neoplasm. False positive reports average 6 to 10%. Patient will receive a letter notifying them of these results.
== END 2025-02-16 02:28 ==
LOC: DI 02:08
PROVIDERS: PCP Nurse Practitioner Adult Health; Visit Provider Nurse Practitioner Adult Health
DX: Z12.31 Encounter for screening mammogram for malignant neoplasm of breast (principal); R92.323 Mammographic fibroglandular density, bilateral breasts
CPT/HCPCS: 77063; 77067